=== PATIENT | female | born 1995 | race Caucasian/White ===

== ENCOUNTER 2017-09-23 11:37 | Emergency (ER) | END 2017-09-23 16:57 | disposition home or self-care (01) ==

== ENCOUNTER 2018-03-05 18:56 | Outpatient (CLI) | END 2018-03-05 21:53 | disposition home or self-care (01) ==

== ENCOUNTER 2018-03-20 20:24 | Outpatient (CLI) | END 2018-03-21 00:20 | disposition home or self-care (01) ==

== ENCOUNTER 2018-03-30 10:50 | Inpatient (IN) | END 2018-04-02 17:28 | disposition home or self-care (01) | DRG 775 ==